=== PATIENT | male | born 1945 | race African-American/Black ===

== ENCOUNTER 2019-02-24 15:05 | Emergency (ER) | payer OTHER ==
[~2019-02-24] VITALS: Ht 172.7 cm; Wt 70.3 kg
[~2019-02-24 15:05] MED LIST: ALEVE220 MG PO; ALLOPURINOL 10100 M1 PO; ASPIRIN325 PO; AVALIDE 300-251 EACH; AVAPRO 150 MG150 MG PO; CRESTOR10 MG PO; CRESTOR5 MG; HYDROCHLOROTHIA25 M2 PO; LEVAQUIN 750 M750 MG PO; NORCO 5-325 TA1 EACH PO; NORVASC5 MG PO; PLAVIX 75 MG TA75 M1 PO; ROCALTROL0.25 MCG PO; TOPROL XL200 MG
[2019-02-24] MEDS ORDERED: LIPITOR10 MG PO (15:20)
[2019-02-24] MEDS ORDERED: PLAVIX 75 MG TA75 M1 PO (15:21)
[2019-02-24 16:59] LABS: ABSOLUTE NEUTROPHILS 8.1 thou/uL (1.4-8.2); BASOPHILS 0.5 % (0.0-2.0); EOSINOPHILS 5.7 % (0.0-3.0); HEMATOCRIT 34.9 % (42.0-52.0); HEMOGLOBIN 11.4 gm/dL (14.0-18.0); LYMPHOCYTES 6.3 % (24.0-44.0); MCH 29.3 pg (26.0-34.0); MCHC 32.7 g/dL (28.0-37.0); MCV 89.8 fL (80.0-100.0); MONOCYTES 6.7 % (1.0-8.0); PLATELET COUNT 300 thou/uL (150-400); POLYS 80.8 % (36.0-66.0); RBC 3.89 mil/uL (4.50-6.00); RDW 14.6 % (10.5-14.5)
[2019-02-24 17:05] LABS: CALCIUM 9.9 mg/dL (8.5-10.1); CREATININE 4.5 mg/dL (0.7-1.3); POTASSIUM 3.6 mmol/L (3.5-5.1)
[2019-02-24] MEDS ORDERED: TESSALON PERLE100 MG PO (18:19)
[2019-02-24] MEDS ORDERED: ZPAK PO (18:28)
[2019-02-24 19:03] VITALS: BP 147/76
== END 2019-02-24 18:30 | disposition home or self-care (01) ==
LOC: ER 15:05
PROVIDERS: Nurse Practitioner
DX: J06.9 Acute upper respiratory infection, unspecified (principal); J02.9 Acute pharyngitis, unspecified; E78.5 Hyperlipidemia, unspecified; I12.9 Hypertensive chronic kidney disease with stage 1 through stage 4 chronic kidney disease, or unspecified chronic kidney disease; N18.9 Chronic kidney disease, unspecified; M19.90 Unspecified osteoarthritis, unspecified site; Z85.038 Personal history of other malignant neoplasm of large intestine

== ENCOUNTER → 2020-04-16 | Outpatient (CLI) | payer OTHER ==
[~2020-04-16] MED LIST changes: +LIPITOR10 MG PO; +TESSALON PERLE100 MG PO; +ZPAK PO
== END ==
LOC: CAT 13:00
PROVIDERS: ATTEND Internal Medicine
DX: N28.1 Cyst of kidney, acquired (principal); K50.90 Crohn's disease, unspecified, without complications; J98.4 Other disorders of lung; R18.8 Other ascites; Z93.3 Colostomy status

== ENCOUNTER 2020-07-14 21:14 | Emergency (ER) | payer OTHER ==
[~2020-07-14] VITALS: Ht 172.7 cm; Wt 49.9 kg
[2020-07-14] MEDS ORDERED: TYLENOL325 MG PO (21:24)
[2020-07-14] MEDS ORDERED: ELIQUIS2.5 MG PO (21:25)
[2020-07-14] MEDS ORDERED: ASA81BEC PO (21:25)
[2020-07-14] MEDS ORDERED: BETAMETHASONE D50 G2 TOP (21:26)
[2020-07-14] MEDS ORDERED: CIPRO500 M1 PO (21:26)
[2020-07-14] MEDS ORDERED: PROCRIT10000 UNIT SUBQ (21:27)
[2020-07-14] MEDS ORDERED: VOLTAREN GEL 1100 GM TOP (21:27)
[2020-07-14] MEDS ORDERED: FOLIC ACID1 MG PO (21:28)
[2020-07-14] MEDS ORDERED: FLAGYL500 M1 PO (21:28)
[2020-07-14] MEDS ORDERED: REMERON15 M2 PO (21:29)
[2020-07-14] MEDS ORDERED: MIDODRINE HCL 55 M1 PO (21:29)
[2020-07-14] MEDS ORDERED: PROTONIX40 M2 PO (21:30)
[2020-07-14] MEDS ORDERED: CARAFATE 1 GM TA1 GM PO (21:30)
[2020-07-14] MEDS ORDERED: QUIN B STRONG1 EACH PO (21:31)
[2020-07-14 22:46] VITALS: BP 120/69
== END 2020-07-14 22:51 | disposition home or self-care (01) ==
LOC: ER 21:14
DX: K94.23 Gastrostomy malfunction (principal); E78.5 Hyperlipidemia, unspecified; I12.9 Hypertensive chronic kidney disease with stage 1 through stage 4 chronic kidney disease, or unspecified chronic kidney disease; N18.9 Chronic kidney disease, unspecified; Z79.01 Long term (current) use of anticoagulants; Z79.899 Other long term (current) drug therapy; Z79.2 Long term (current) use of antibiotics; Z79.82 Long term (current) use of aspirin; Z88.8 Allergy status to other drugs, medicaments and biological substances

== ENCOUNTER 2021-01-14 13:43 | Emergency (ER) | payer OTHER ==
[~2021-01-14] VITALS: Ht 172.7 cm; Wt 49.9 kg
[~2021-01-14 13:43] MED LIST changes: +ASA81BEC PO; +BETAMETHASONE D50 G2 TOP; +CARAFATE 1 GM TA1 GM PO; +CIPRO500 M1 PO; +ELIQUIS2.5 MG PO; +FLAGYL500 M1 PO; +FOLIC ACID1 MG PO; +MIDODRINE HCL 55 M1 PO; +PROCRIT10000 UNIT SUBQ; +PROTONIX40 M2 PO; +QUIN B STRONG1 EACH PO; +REMERON15 M2 PO; +TYLENOL325 MG PO; +VOLTAREN GEL 1100 GM TOP
[2021-01-14 14:46] LABS: HEMATOCRIT 39.4 % (42.0-52.0); HEMOGLOBIN 11.6 gm/dL (14.0-18.0); MCH 22.6 pg (26.0-34.0); MCHC 29.5 g/dL (28.0-37.0); MCV 76.5 fL (80.0-100.0); PLATELET COUNT 460 thou/uL (150-400); RBC 5.15 mil/uL (4.50-6.00); RDW 23.6 % (10.5-14.5); WBC 13.1 thou/uL (4.0-11.0)
[2021-01-14 14:51] LABS: ANION GAP 10 mmol/L (7-16); BUN 35 mg/dL (7-18); CALCIUM 10.9 mg/dL (8.5-10.1); CHLORIDE 97 mmol/L (98-107); CO2 26 mmol/L (21-32); CREATININE 6.4 mg/dL (0.7-1.3); GLUCOSE 119 mg/dL (74-106); POTASSIUM 5.1 mmol/L (3.5-5.1); SODIUM 133 mmol/L (136-145)
[2021-01-14 15:02] LABS: TROPONIN-I <0.06 ng/mL (<0.06)
[2021-01-14 15:24] LABS: ABSOLUTE NEUTROPHILS 11.7 thou/uL (1.4-8.2); ANISOCYTOSIS 1+; HYPOCHROMASIA 1+
[2021-01-14 15:47] VITALS: BP 113/64
--- NOTE | 2021-01-14 16:28 | EKG ---
[place] [address] [facility] [employer] [place] [address] ELECTROCARDIOGRAM REPORT Name: KENTRELL FONG Room #: DEP LAITH Rubio#: [id number] Admission: 01/14/21 Attend Phys: Discharge: 01/14/21 Date of : 47 Report #: [id number] [facility] ED Test Date: 2021-01-14 Test Time: 14:28:01 Pat Name: KENTRELL FONG Department: Room: Gender: M [employer]: KEAGAN : 1945 Requested By: Armaan Denton Order Number: [id number] MD: Lavell Sánchez Measurements Intervals [place] Rate: 104 P: 76 OK: 140 QRS: 90 QRSD: 79 T: 63 QT: 339 QTc: 446 Interpretive Statements Sinus tachycardia Right atrial enlargement Borderline right axis deviation Baseline wander in lead(s) II,III,aVF Compared to ECG 06/22/2015 22:55:24 Atrial abnormality now present Sinus rhythm no longer present Electronically Signed On 01-14-2021 16:27:54 CDT by Lavell Sánchez [email or web address] <ELECTRONICALLY SIGNED> By: Lavell Sánchez MD, [facility] 01/14/21 1627 1428 1428 Lavell Sánchez MD, [facility] /EPI
== END 2021-01-14 15:50 | disposition home or self-care (01) ==
LOC: ER 13:43
PROVIDERS: Nurse Practitioner
DX: I95.9 Hypotension, unspecified (principal); R53.1 Weakness; E78.5 Hyperlipidemia, unspecified; I12.9 Hypertensive chronic kidney disease with stage 1 through stage 4 chronic kidney disease, or unspecified chronic kidney disease; N18.9 Chronic kidney disease, unspecified; M19.90 Unspecified osteoarthritis, unspecified site; Z85.038 Personal history of other malignant neoplasm of large intestine; Z79.82 Long term (current) use of aspirin; Z79.899 Other long term (current) drug therapy; Z88.8 Allergy status to other drugs, medicaments and biological substances